=== PATIENT | male | born 1940 | race Caucasian/White ===

== ENCOUNTER 2017-07-22 12:06 | Inpatient (IN) | payer OTHER ==
--- NOTE | 2017-07-22 12:38 | CPEKG ---
Heart Rate: 57 RR Interval: 1053 P-R Interval: 240 QRSD Interval: 140 QT Interval: 448 QTC Interval: 437 P [place]: 27 QRS [place]: 53 T Wave [place]: 10 EKG Severity - ABNORMAL ECG - EKG Impression: SINUS RHYTHM EKG Impression: FIRST DEGREE AV BLOCK EKG Impression: RIGHT BUNDLE BRANCH BLOCK Electronically Signed By: Jarod Hernandez 22-Jul-2017 18:39:43
[2017-07-22 12:51] LABS: PLATELET COUNT 116 10^3/uL (150-400)
[2017-07-22 13:00] LABS: INR 2.35 (0.83-1.16); PROTIME(PATIENT) 25.7 SEC (12.0-15.0)
--- NOTE | 2017-07-22 14:32 | EDPHY ---
H & P Stated Complaint: sob post cleaning broken water heater in basement monday Time Seen by Provider: 07/22/17 12:29 - Personal History Current Tetanus/Diphtheria Vaccine: Yes Tetanus Vaccine Date: 2011 - Medical/Surgical History Hx Asthma: No Hx Chronic Respiratory Disease: No Hx Diabetes: No Hx Cardiac Disease: No Hx Renal Disease: No Hx Cirrhosis: No Hx Alcoholism: No Hx HIV/AIDS: No Hx Splenectomy or Spleen Trauma: No Other PMH: HTN, cataract/PE - Social History Smoking Status: Never smoked Constitutional: Initial Vital Signs Temperature (C) 36.3 C 07/22/17 12:11 Heart Rate 63 07/22/17 12:11 Respiratory Rate 22 H 07/22/17 12:11 Blood Pressure 151/75 H 07/22/17 12:11 O2 Sat (%) 100 07/22/17 12:11 O2 Delivery Mode Room Air Allergies/Adverse Reactions: morphine [Morphine] Allergy (Intermediate, Verified 07/22/17 12:10) Loss of consciousness nitroglycerin [Nitroglycerin] Allergy (Intermediate, Verified 07/22/17 12:10) Loss of consciousness Penicillins Allergy (Unknown, Verified 07/22/17 12:10) Home Medications: Medication Instructions Recorded Atenolol [Tenormin 25 mg (*)] 25 mg PO DAILY 07/22/17 Herbals/Supplements -Info Only 1 ea PO DAILY 07/22/17 SIMVASTATIN 10 mg PO HS 07/22/17 Sildenafil Citrate [Viagra 50 MG 100 mg PO DAILY PRN 07/22/17 (*)] Tamsulosin HCl [Tamsulosin HCl] 0.4 mg PO DAILY 07/22/17 Warfarin Sodium [Coumadin 2MG (*)] 6 mg PO SUMOWETHSA@1600 07/22/17 Warfarin Sodium [Coumadin 2MG (*)] 8 mg PO TUFR@1600 07/22/17 Medical Decision Making - Diagnostics Imaging Results: Imaging Impressions Chest X-Ray 07/22/17 12:38 Impression: Normal chest. Imaging: Discussed imaging studies w/ crystal machining coordinator Radiologist, I viewed and interpreted images myself ED Course/Re-evaluation: CHIEF COMPLAINT: Multiple near syncopal episodes HISTORY OF PRESENT ILLNESS: 77-year-old gentleman who over the last few days has had multiple near syncopal episodes. He denies any chest pain chest pressure. He denies any fevers or chills. Denies any urinary symptoms. He states that at times he will be completely fine like last night when he went out to dinner with his daughter and son-in-law. He also then states that later in the evening he got up to go into the kitchen from sitting in his house and he felt exceedingly lightheaded and dizzy near syncopal and had to sit down immediately. He denies any palpitations. This patient has a factor 5 Leiden disorder and he is anticoagulated on Coumadin. He has had 2 pulmonary emboli in the past but no symptoms today remind him of his pulmonary emboli. REVIEW OF SYSTEMS: A 10 point review of systems was performed and is negative with the exception of the elements mentioned in the history of present illness. PHYSICAL EXAM: HR, BP, O2 Sat, RR. Temp noted General Appearance: Alert, well hydrated, appropriate, and non-toxic appearing. Head: Atraumatic without scalp tenderness or obvious injury Eyes: Pupils equal, round, reactive to light and accommodation, EOMI, no trauma , no injection. Nose: Atraumatic, no rhinorrhea, clear. Throat: There is no erythema or exudates, no lesions, normal tonsils, mucus membranes moist. Neck: Supple, non-tender, no lymphadenopathy. Respiratory: No retractions, no distress, no wheezes, and no accessory muscle use. Lungs are clear to auscultation bilaterally. Cardiovascular: Regular rate and rhythm, no murmurs, rubs, or gallops. Good capillary refill all extremities. Gastrointestinal: Abdomen is soft, non-tender, non-distended, no masses, no rebound, no guarding, no peritoneal signs. Musculoskeletal: Normal active ROM of all extremities, atraumatic. Neurological: Alert, appropriate, and interactive. The patient has non-focal cranial nerves, motor, sensory, and cerebellar exam. Skin: No rashes, good turgor, no nodules on palpation. PAST MEDICAL HISTORY: Factor V Leiden deficiency, Hypertension, PE PAST SURGICAL HISTORY: Noncontributory SOCIAL HISTORY: , retired, does not abuse tobacco drugs or alcohol, traveling to [facility] tomorrow DIAGNOSTICS/PROCEDURES/CRITICAL CARE TIME: The 12 lead EKG was interpreted by myself. Sinus rhythm rate 57, first degree AV block, RBBB. See hard copy and/or "tracemaster" electronic copy for interpretation. The 2nd EKG shows a complete heart block at 2:21 a.m. With a in effective ventricular rate of 35. See below Chest x-ray: nothing acute The 12 lead EKG was interpreted by myself. 2:1 heart block, rate 36. See hard copy and/or "tracemaster" electronic copy for interpretation. Critical care time spent by me, Dr. Hernandez, exclusively with this patient was 35 minutes, exclusive of PA time and exclusive of procedures. The organ system at risk was cardiovascular. Time spent in assessment, serial reassessments of patient, discussion with patient and family, consideration of interventions, review of EKGs, labs, and imaging, and consultation with cardiology. DIFFERENTIAL DIAGNOSIS: The differential diagnosis for the patient's syncope included but was not limited to vasovagal syncope, arrhythmia, dehydration, cardiogenic causes, neurogenic causes, and blood loss. MEDICAL DECISION MAKING: This is an anticoagulated 77 y/o male with Factor V Leiden deficiency who presents with a few days of recurrent near-syncopal events. Symptoms could represent pulmonary embolism vs. arrhythmia. Plan for standard cardiac and PE work up including IV, labs, EKG, chest x-ray. Negative D-dimer and troponin. Chest x-ray negative. EKG shows sinus rhythm with 1st degree AV block and RBBB. 1420: RN sat patient up for road test and his HR dropped to the mid-30s. He was symptomatic at this time. His rate persisted in to mid-30 range for 5-10 minutes. This is likely customer support representative of sick sinus syndrome and correlates with his symptoms over the last few days. Repeat EKG ordered. Reevaluated patient and discussed findings. PCP: Dr. Lindsay. No recent bottle tester. Cardiology paged. 1430: Repeat EKG shows 2:1 heart block, rate 36. 1435: Spoke with hospitalist service. Dr. Sandoval accepts admission. 1438: Consulted with Dr. Park, bottle tester. He requests an echocardiogram. He will consult during admission. NPO status after midnight with plan for pacer placement tomorrow. - Data Points Laboratory Results: Laboratory Results 07/22/17 12:45 07/22/17 12:45 07/22/17 07/22/17 07/22/17 12:45 12:45 12:45 WBC 2.88 10^3/uL L 10^3/uL (3.80-9.50) RBC 5.15 10^6/uL 10^6/uL (4.40-6.38) Hgb 16.5 g/dL g/dL (13.7-17.5) Hct 47.9 % % (40.0-51.0) MCV 93.0 fL fL (81.5-99.8) MCH 32.0 pg pg (27.9-34.1) MCHC 34.4 g/dL g/dL (32.4-36.7) RDW 12.7 % % (11.5-15.2) Plt Count 116 10^3/uL L 10^3/uL (150-400) MPV 10.2 fL fL (8.7-11.7) Neut % (Auto) 47.6 % % (39.3-74.2) Lymph % (Auto) 36.1 % % (15.0-45.0) [place] % (Auto) 13.2 % H % (4.5-13.0) Eos % (Auto) 2.1 % % (0.6-7.6) Baso % (Auto) 0.7 % % (0.3-1.7) Nucleat RBC Rel Count 0.0 % % (0.0-0.2) Absolute Neuts (auto) 1.37 10^3/uL L 10^3/uL (1.70-6.50) Absolute Lymphs (auto) 1.04 10^3/uL 10^3/uL (1.00-3.00) Absolute Monos (auto) 0.38 10^3/uL 10^3/uL (0.30-0.80) Absolute Eos (auto) 0.06 10^3/uL 10^3/uL (0.03-0.40) Absolute Basos (auto) 0.02 10^3/uL 10^3/uL (0.02-0.10) Absolute Nucleated RBC 0.00 10^3/uL 10^3/uL (0-0.01) Immature Gran % 0.3 % % (0.0-1.1) Immature Gran # 0.01 10^3/uL 10^3/uL (0.00-0.10) PT 25.7 SEC H SEC (12.0-15.0) INR 2.35 H (0.83-1.16) APTT 34.8 SEC SEC (23.0-38.0) D-Dimer 0.30 ug/mLFEU ug/mLFEU (0.00-0.50) Sodium 144 mEq/L mEq/L (135-145) Potassium 4.5 mEq/L mEq/L (3.5-5.2) Chloride 107 mEq/L mEq/L (97-110) Carbon Dioxide 23 mEq/l mEq/l (22-31) Anion Gap 14 mEq/L mEq/L (8-16) BUN 20 mg/dL mg/dL (7-23) Creatinine 1.1 mg/dL mg/dL (0.7-1.3) Estimated GFR > 60 Glucose 102 mg/dL H mg/dL (70-100) Calcium 9.7 mg/dL mg/dL (8.5-10.4) Magnesium 2.0 mg/dL mg/dL (1.6-2.3) Troponin I < 0.012 ng/mL ng/mL (0.000-0.034) NT-Pro-B Natriuret Pep 70 pg/mL pg/mL (0-450) Departure - Departure Disposition: [facility] Inpatient Acute Clinical Impression: Sick sinus syndrome, Symptomatic bradycardia, Complete heart block Condition: Fair
--- NOTE | 2017-07-22 14:34 | CPEKG ---
Heart Rate: 36 RR Interval: 1667 P-R Interval: 232 QRSD Interval: 142 QT Interval: 504 QTC Interval: 390 P [place]: 36 QRS [place]: 70 T Wave [place]: 85 EKG Severity - ABNORMAL ECG - EKG Impression: PREDOMINANT 2:1 AV BLOCK EKG Impression: RIGHT BUNDLE BRANCH BLOCK Electronically Signed By: Jarod Hernandez 22-Jul-2017 18:39:43
--- NOTE | 2017-07-22 14:57 | PDGENHP ---
History and Physical History and Physical: Chief complaint: near syncope History of present illness: Pt started feeling very fatigued/ill 3 days ago. This AM, he had an episode of near syncope after he picked up the newspaper in his front yard. He had lightheadedness and a fear of passing out. He went back inside and sat down and the symptoms resolved. It occurred again as he was starting to fix breakfast, standing. He had to sit down again to improve the symptoms. He called his friend, who brought him to the ED, where he was found to have 2:1 AV conduction on EKG and telemetry while he was walking. Symptoms are worse with standing, walking, sitting up. Symptoms are better when he rests or lies down. Past medical history: Factor V Leiden thrombophilia, Hypertension, PE, BPH, hyperlipidemia. Past surgical history: Cholecystectomy, inguinal hernia repair, vasectomy, laser eye surgery. Medications: Atenolol 25 mg p.o. Daily, finasteride 5 mg p.o. Daily, simvastatin 10 mg p.o. Daily, tamsulosin 0.4 mg p.o. Daily, Centrum Silver 1 tablet p.o. Daily. Allergies: Morphine, nitroglycerin, penicillin. 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. . No tobacco or alcohol or drug use. Sedentary. Denies recent travel in the last 6mos. Denies tick/Lyme exposure. Family history: DVT. Review of systems: 10 point review of systems was conducted and is negative except per HPI Physical exam: Vitals: Reviewed. Noted HR 38 on telemetry. Gen: General: The patient is an elderly male who is alert and in no acute distress. HEENT: normocephalic, extraocular movements intact, conjunctivae clear, no lesions on face. Nares and oral mucosa pink and moist. Neck: trachea midline, no visible masses, no external lesions. CV: +S1/S2, slow heart rate, regular rhythm, no MRG. Resp: unlabored, CTAB no RRW. Abd: soft and nondistended. Musculoskeletal: Normal muscle tone and bulk. Neuro: cranial nerves II XII grossly intact. Intact gross motor and sensory function. Psych: appropriate mood/affect. Skin: no pallor. Heme/lymph: No peripheral edema. Labs: WBC 2.8, platelets 116, hemoglobin 16.5. INR 2.35. D-dimer 0.3. Sodium 144 potassium 4.5 chloride 107 CO2 23 BUN 20 creatinine 1.1 glucose 102 calcium 9.7 magnesium 2.0 troponin I less than 0.012 proBNP 70. Chest x-ray: No acute cardiopulmonary process. EKG at 12:36: Sinus rhythm with heart rate 57, 1st deg AVB, RBBB. EKG at 13:32: SR, HR 36, 3rd deg AVB w/ 2:1 conduction. Impression and plan: AVB w/ 2:1 conduction HTN Hyperlipidemia Factor V Leiden thrombophilia Hx PE BPH -Spoke w/ ED physician, who consulted Cardiology. Dr. Park customer relations assistant - recs appreciated. -Discussed case w/ Dr. Park - who recommends to hold BB and if still experiencing heart block plan for PPM placement on Monday. -Since pt is hemodynamically stable, he is being admitted to PCU w/ cardiac monitoring. -Stat TTE has been ordered - per d/w Dr. Park, it is normal. Report pending. -Check TSH to r/o hypothyroidism as a metabolic cause. -Hold beta akira. -Check UA to r/o UTI in case of PPM placement. -Holding warfarin in anticipation of procedure. If INR becomes subtherapeutic (< 2), start heparin drip for AC. -Check labs in AM. -VTE ppx - has been on therapeutic on warfarin, start heparin drip after become subtherapeutic. -Code status - Full code. -Admission status - PCU, inpatient admission for >2 midnight stay.
[2017-07-22] MEDS ORDERED: ONDANSETRON DISINTEGRATING 4 MG TAB PO PRN (15:56)
[2017-07-22] MEDS ORDERED: ACETAMINOPHEN 325 MG TAB PO PRN (15:56)
--- NOTE | 2017-07-22 16:25 | PDMN ---
Medical Necessity Medical necessity: C/M review: Patient meets INPT criteria under [facility] Cardiology GRG (Atrioventricular block, second degree type 2 versus Atrioventricular block, third degree): Acute and persistent symptomatic second degree type AV block versus 3rd degree AV block, tatigue, bradycardia to 30's, requiring planned Cardiology consult, echocardiogram, hold Warfarin in anticipation of likely 07/23/2017 permanent pacemaker placement, NPO after MN, ongoing hold beta akira, cardiac monitoring, pulse oximetry, comorbid hypertension, Factor V Leiden thrombophilia, hyperlipidemia, BPH, history of PE. anticipates > 2 MN LOS for ongoing med nec for eval and TX of above. Patient is Medicare Advantage which follows guidelines CMS puts forth.
--- NOTE | 2017-07-22 16:25 | SOAPPROG ---
HENOK Progress Note Assessment/Plan: Assessment: Cardiology consultation performed and dictated. See full consult note for full details. 77 y/o man with HTN, factor V deficiency with PEs in and 2011 with three days of near syncope and BRADEN at one block and found to have 2:1 AV block with heart rate of 35bpm. PLAN: 1)stop Atenolol and see if bradyarrhythmias improved. I doubt the atenolol caused all of this and will probably need PPM Monday. 2)transcutaneous pacer pads on 3)hold coumadin in anticipation for PPM monday. Start IV heparin get once INR < 2.0 4)one more troponin in AM (07/23) 5)bedrest with minimal exercise 6)continuous telemetry. Thanks. Will follow with you. 07/22/17 16:22 Objective: Vital Signs Temp Pulse Resp BP Pulse Ox 36.6 C 40 L 18 134/70 H 97 07/22/17 16:03 07/22/17 16:03 07/22/17 16:03 07/22/17 16:03 07/22/17 16:03 PT 25.7 SEC (12.0-15.0) H 07/22/17 12:45 INR 2.35 (0.83-1.16) H 07/22/17 12:45 ICD10 Worksheet Patient Problems: Problems Problem Status Onset Complete heart block Acute Sick sinus syndrome Acute Symptomatic bradycardia Acute
[2017-07-22] MEDS: PRAVASTATIN SODIUM 20 MG TAB PO SCH (20:15)
--- NOTE | 2017-07-22 20:59 | GCON ---
[f rep st] CONSULTATION CARDIOLOGY CONSULT DATE OF CONSULTATION: 07/22/2017 REASON FOR CONSULTATION: Three days of near syncope and dyspnea on exertion with newly found 2-to-1 AV block and heart rate of 35 beats per minute. HISTORY OF PRESENT ILLNESS: I was asked by Dr. Sandoval to consult for the above reasons. The patient is a 77-year-old gentleman with no previous cardiac problems. He has had hypertension for 11 years o n atenolol 25 mg daily. He has also Factor 5 Leiden deficient and has had 2 PEs, both in 1998 and 24 05, on chronic Coumadin. He had a treadmill Cardiolite stress test in 2009, which was normal. Three days ago he started having near syncope and dyspnea on exertion at 20 feet. Today, he came into the emergency room for persistent symptoms, and was found initially to be in sinus Cortez at 55 beats per minute with a first degree AV block and right bundle branch block. During the ER evaluation, he ashvin t into a 2-1 AV block with a heart rate of 35 beats per minute. Lying in bed he is asymptomatic, but when he walks around he has near syncope and shortness of breath. He denies chest pain, TIA symptom s or recent bleeding. He has had no fevers or chills in the last week. PAST MEDICAL HISTORY: Pulmonary embolus in 1998 and again in 2011, hypertension, hyperlipidemia, pre vious Soco-Noel GI bleed remotely, ED, and factor 5 Leiden deficiency. PAST SURGICAL HISTORY: Cholecystectomy. MEDICATIONS: Atenolol 25 mg per day, Coumadin, and simvastatin. ALLERGIES: Morphine, nitroglycerin, and penicillin. SOCIAL HISTORY: The patient denies tobacco or alcohol use. FAMILY HISTORY: Unremarkable for premature coronary artery disease. REVIEW OF SYSTEMS: The patient reports no GI bleed symptoms such as hematemesis, melena, or bright r ed blood per rectum. He has no arthralgias or painful effusions. Rest of 10-point review of systems is negative. PHYSICAL EXAM: VITAL SIGNS: Afebrile, pulse 36 and regular, blood pressure 135/86, respirations 20, weight 90.7 kg. GENERAL: A normal-appearing gentleman in no acute distress without chest pain or u sing accessory respiratory muscles. EYES: Pupils equal, reactive to light. ENT: Oral mucosa with no cyanosis. NECK: Jugular venous pressure to 7 cm. Carotid pulses 2+ bilaterally with no obvious bruits. LUNGS: Clear to auscultation bilaterally without rales, rhonchi, or wheezing. HEART: Bong ycardic. Normal PMI. Regular rhythm with no obvious murmurs or S3. ABDOMEN: Soft and nontender. No hepatosplenomegaly. No ascites. No tenderness or bruit heard over his abdominal aorta. EXTREMIT IES: 2+ peripheral pulses, including femoral and pedal pulses. No edema noted. MUSCULOSKELETAL: No scoliosis. NEURO: Normal affect and mood. SKIN: No bleeding or cyanosis. NECK: No nuchal rigid ity. LABORATORY DATA: EKG 2-to-1 AV block with a heart rate of 36 beats per minute and a right bundle bra nch block. White count 2.9, hematocrit 48, platelets 116,000, MCV 93, INR 2.35. Sodium 144, potassium 4.5, chlo ride 107, bicarb 23, BUN 20, creatinine 1.1, glucose 102. Troponin negative. NT proBNP level 70. IMPRESSION: A 77-year-old gentleman with 3 days of near syncope and dyspnea on exertion secondary to cortez arrhythmias with 2-to-1 atrioventricular block, and an escape heart rate of 36 beats per minut e. 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 There is a remote chance that this is all related to his atenolol. Delphine hinds is not suffering from a myocardial infarction or heart failure clinically. PLAN: 1. Would admit to telemetry, and stop his atenolol and Coumadin. 2. Would get a stat echo to make sure his LV function is normal. 3. Would follow him on telemetry, but if he is still having significant Cortez arrhythmias in 24 hour s off atenolol, I think he needs a pacemaker, probably on Monday. 4. He is at high risk for recurrent PEs or clotting with subtherapeutic Coumadin. Once his INR is l ess than 2.0, would start him on an unfractionated heparin drip that we can stop the tootie pacemaker i nsertion. 5. Would check a TSH and urinalysis to make sure we do not have severe hypothyroidism or an occult U TI going on. 6. If his blood pressure starts to go up off atenolol, would use lisinopril 10-20 mg as his blood pr essure medicine. Thank you for allowing me to participate in the care of this patient. I will follow along closely wi th you during his hospitalization. /[id number]/MODL
[2017-07-22] MEDS ORDERED: NON-FORMULARY NEW DRUG (Simvastatin [Simvastatin] 10 MG) PO SCH (21:00)
[2017-07-23 05:14] LABS: PLATELET COUNT 112 10^3/uL (150-400)
[2017-07-23 05:22] LABS: INR 2.49 (0.83-1.16); PROTIME(PATIENT) 26.9 SEC (12.0-15.0)
--- NOTE | 2017-07-23 08:40 | CPEKG ---
Heart Rate: 62 RR Interval: 968 P-R Interval: 244 QRSD Interval: 142 QT Interval: 476 QTC Interval: 484 P [place]: 41 QRS [place]: 69 T Wave [place]: 16 EKG Severity - ABNORMAL ECG - EKG Impression: SINUS RHYTHM EKG Impression: FIRST DEGREE AV BLOCK EKG Impression: RIGHT BUNDLE BRANCH BLOCK Electronically Signed By: Walt Garcia 23-Jul-2017 09:50:23
--- NOTE | 2017-07-23 08:49 | SOAPPROG ---
SOAP Progress Note Assessment/Plan: Assessment: 77 y/o man with HTN, factor V deficiency with PEs in and 2011 with three days of near syncope and BRADEN at one block and found to have 2:1 AV block with heart rate of 35bpm. Off Atenolol now in NSR at 60bpm with long first degree AV block and RBBB. No symptoms last 12hrs but has been mostly confined to bed. ? urine contaminate vs occult, uncomplicated UTI. PLAN: 1)no change in current meds. Continue to hold Atenolol and coumadin 2)okay to ambulate in hallways. 3)agree with checking INR this afternoon. If still > 2.4, would give Vitamin K 1mg IV slow push. 4)will discuss with hospitalist about treating for UTI empirically. 5)NPO after midnight for possible permanent pacemaker tomorrow. Will have EP- Gabriela consult in AM 6)no need for new BP med yet. Start Lisinopril 10mg PO daily if SBP > 160mmHg. 07/23/17 08:45 Subjective: no complaints this AM. Denies furthur dizziness, near syncope or BRADEN. Denies fevers, chills or dysuria. Objective: Vital Signs Temp Pulse Resp BP Pulse Ox 36.7 C 39 L 15 122/62 H 96 07/23/17 07:36 07/23/17 07:36 07/23/17 07:36 07/23/17 07:36 07/23/17 07:36 Laboratory Results 07/23/17 04:44 07/23/17 04:44 07/22/17 07/23/17 07/24/17 05:59 05:59 05:59 Intake Total 660 Output Total 425 Balance 235 PT 26.9 SEC (12.0-15.0) H 07/23/17 04:44 INR 2.49 (0.83-1.16) H 07/23/17 04:44 Physical Exam - Physical Exam General Appearance: alert EENT: normal ENT inspection Neck: non-tender Respiratory: lungs clear Cardiac/Chest: regular rate, rhythm, systolic murmur (1/6 CONTRERAS heard), No gallop , No JVD Peripheral Pulses: 2+: carotid (R), carotid (L), femoral (R), femoral (L), dorsalis-pedis (R), dorsalis-pedis (L) Abdomen: non-tender, No distended, No guarding Skin: warm/dry Extremities: No pedal edema Neuro/Psych: alert, oriented x 3 ICD10 Worksheet Patient Problems: Problems Problem Status Onset Complete heart block Acute Sick sinus syndrome Acute Symptomatic bradycardia Acute
--- NOTE | 2017-07-23 09:26 | ASMTLACE ---
LACE Length of stay for Answers: 2 days current admission Acuity / Level of Answers: Yes Care: Did the patient have an inpatient admission? Comorbidities - select Answers: Other Notes: pre Syncope all that apply # of Emergency department Answers: 1-2 visits in the last 6 months Score: 7 Date Signed: 07/23/2017 09:26 AM Electronically Signed By:Mabel Samuel LCSW
--- NOTE | 2017-07-23 09:30 | ECHO ---
[email or web address] [address] Main: [phone] Fax: Transthoracic Echocardiogram Name: STEVE ELIZABETH MR#: [id number] Study Date: 07/22/2017 Study Time: 03:18 PM Date of : 1940 Age: 77 year(s) Height: 188 cm (74 in.) Weight: 90.72 kg (200 lb.) BSA: 2.17 m2 Gender: Male Examination: Echo Indication: Heart Block Image Quality: Adequate Contrast: Requested by: Jarod Hernandez BP: / Heart Rate: Rhythm: Indication: Heart Block Procedure Staff Cad Programmer: Ludivina Falk [facility] Reading Physician: Faisal Park Requesting Provider: Conclusions: 1)Normal LV size and systolic function with a LVEF of 65% and normal wall motions. 2)Mild diastolic dysfunction noted. 3)Upper normal RV size with normal RVEF. 4)Mild left atrial enlargement noted. 5)Aortic valve sclerosis without or AI noted. 6)Mild to moderate MR without MV prolapse. 7)Mild to moderate TR noted with upper limits of normal PA pressures. Measurements: Chambers Valvular Assessment AV/MV Valvular Assessment TV/PV Normal Normal Normal Name Value Range Name Value Range Name Value Range Ao Nessa (MM): 3.0 cm (2.2 cm-3.7 AV Vmax: 1.28 m/s (1 m/s-1.7 TR Vmax: 2.76 mm/s ( - ) cm) m/s) TR PGmax: 30 mmHg ( - ) IVSd (2D): 1.0 cm (0.6 cm-1.1 AV maxP mmHg ( - ) syst. PAP: 40 mmHg ( - ) cm) LVOT Vmax: 1.21 m/s (0.7 m/s-1.1 PV Vmax: 0.90 m/s (0.6 m/s-0.9 LVDd (2D): 4.1 cm (4.2 cm-5.9 m/s) m/s) cm) SUSAN (Vmax): 3.0 cm2 ( - ) PV PGmax: 3 mmHg ( - ) LVDs (2D): 2.5 cm (2.1 cm-4 MV E Vmax: 0.76 m/s ( - ) cm) MV A Vmax: 1.20 m/s ( - ) LVPWd (2D): 1.0 cm (0.6 cm-1 MV E/A: 0.63 ( - ) cm) LVOTd 2.0 cm 2.0 cm mm LVEF (BP): 65 % (>=55 %) RVDd(2D): 3.3 cm (1.9 cm-3.8 cmmm) Continued Measurements: Chambers Valvular Assessment AV/MV Valvular Assessment TV/PV Patient: STEVE ELIZABETH Study Date: 07/22/2017 Page 1 of 2 03:18 PM Name Value Name Value Name Value LADs Lon.6 cm MV E' Septal: 0.09 m/s CVP (est.): 10 mmHg LA Area: 14.3 cm2 MV E/E' Septal: 8.90 LA Volume: 38 ml MV E/E' Lateral: 7.80 LA Volume Index: 17.5 ml/m2 RA Area: 14.9 cm2 Additional Vessels Name Value Ao Ascendin.4 cm Findings: Left Ventricle: Normal size left ventricle. Borderline concentric LV hypertrophy. Normal global systolic LV function. EF is 65 %. No regional wall motion abnormality. Grade 1 diastolic dysfunction (abnormal relaxation). Right Ventricle: Upper normal size right ventricle. Normal RV function. Left Atrium: The left atrium is mildly dilated. Right Atrium: The right atrium is normal in size. Mitral Valve: Mild mitral annular calcification. No mitral stenosis is present. Mild to moderate mitral regurgitation. Aortic Valve: The aortic valve is tri-leaflet and functions normally. Mild aortic cusp calcification is noted. There is no aortic valve regurgitation. No aortic valve stenosis is present. Tricuspid Valve: The tricuspid valve is normal in appearance and function. Mild to moderate tricuspid valve regurgitation. Right ventricular systolic pressure measures 40mmHg. Pulmonic Valve: The pulmonic valve is normal in appearance and function. There is no pulmonic regurgitation seen. Aorta: The aorta is normal. Normal size aortic root measuring 3.0 cm. Normal size ascending aorta measuring 3.4 cm. IVC: The IVC is dilated. Pericardium: No pericardial effusion. (No Signature Object) Patient: STEVE ELIZABETH Study Date: 07/22/2017 Page 2 of 2 03:18 PM [id number]
--- NOTE | 2017-07-23 09:30 | ASMTCMCOM ---
CM Note CM Note Notes: 77 yr old male admitted for near syncope. Patient has a hx ofFactor V Leiden Synd, HTN, PE, BPH, HLD. Cardiac work-up -patient may need permanent pacer. Therapies to eval for possible discharge needs. CM to follow. Date Signed: 07/23/2017 09:29 AM Electronically Signed By:Mabel Samuel LCSW
[2017-07-23] MEDS: FINASTERIDE 5 MG TAB PO SCH (10:02)
--- NOTE | 2017-07-23 13:06 | HOSPPROG ---
Hospitalist Progress Note Assessment/Plan: Assessment: 77-year-old male presents with acute near syncope secondary to 2:1 heart block Plan: 1. Heart block. Acute, new problem this provider, further workup indicated. 2: 1, escape rate of 36, right bundle branch block on EKG, personally interpreted, unclear whether this has been caused or potentiated by atenolol usage -no evidence of congestive heart failure on chest x-ray -discussed with Dr. Faisal Park, he recommends continuing to hold the atenolol, continue monitor on telemetry, repeat INR this afternoon administer vitamin K if greater than 2.4, in preparation for EP eval and possible permanent pacemaker tomorrow -NPO after midnight 2. Factor 5 Leiden and history of pulmonary embolism. Patient on chronic systemic anticoagulation, currently therapeutic on Coumadin, holding his Coumadin in preparation of likely pacemaker tomorrow -as noted above, repeat INR this afternoon administer vitamin K 1 mg if greater than 2.4, otherwise repeat INR in a.m. -once patient's INR is less than 2, placed on heparin drips this can be discontinued 6 hr prior to pacemaker procedure but continue to cover the patient in the interim 3. Hypertension. Chronic, patient was originally receiving atenolol, currently being held, he initiate lisinopril if systolic blood pressures greater than 160 , currently 110-140 4. Asymptomatic bacteriuria. Patient currently has no urinary symptoms, his urinalysis has a minimal amount of white blood cells and 2+ leukocyte esterase, would not recommend treating this as a urinary tract infection unless the patient develops urinary symptoms 5. BPH. Chronic, currently holding tamsulosin, will reinitiate after pacemaker Diet. Regular, NPO after midnight Prophylaxis. High risk patient, currently systemically anticoagulated Code. Full Disposition. Anticipated discharge is 07/24, verses , depending on hospital course outlined above. Subjective: Patient without any chest pain, very minimal lightheadedness upon standing, no urinary symptoms Objective: Vital Signs Temp Pulse Resp BP Pulse Ox 36.5 C 65 13 146/75 H 100 07/23/17 11:14 07/23/17 11:14 07/23/17 11:14 07/23/17 11:14 07/23/17 11:14 Laboratory Results 07/23/17 04:44 07/23/17 04:44 02/07/23/17 07/24/17 05:59 05:59 05:59 Intake Total 660 Output Total 425 Balance 235 PT 26.9 SEC (12.0-15.0) H 07/23/17 04:44 INR 2.49 (0.83-1.16) H 07/23/17 04:44 - Physical Exam Constitutional: no apparent distress, appears nourished, not in pain, No uncomfortable Cardiovascular: systolic murmur (2/6 at the sternum and apex), bradycardia, No irregularly irregular, No tachycardia, No edema Respiratory: no respiratory distress, no rales or rhonchi, clear to auscultation Gastrointestinal: normoactive bowel sounds, soft, non-tender abdomen, no palpable masses Neurologic: AAOx3, sensation intact bilaterally, No weakness Psychiatric: interacting appropriately, not anxious, not encephalopathic, thought process linear ICD10 Worksheet Patient Problems: Problems Problem Status Onset Sick sinus syndrome Acute Symptomatic bradycardia Acute Complete heart block Acute
[2017-07-23 16:21] LABS: INR 2.41 (0.83-1.16); PROTIME(PATIENT) 26.2 SEC (12.0-15.0)
[2017-07-23] MEDS: PRAVASTATIN SODIUM 20 MG TAB PO SCH (20:17)
[2017-07-23] MEDS ORDERED: PHYTONADIONE 2.5 MG/2.5 ML ORAL UDL PO ONE (23:24)
[2017-07-23] MEDS ORDERED: 1/2 NS 1,000 ML IV SCH (23:45)
[2017-07-24 04:13] LABS: INR 2.26 (0.83-1.16)
--- NOTE | 2017-07-24 08:49 | CPEKG ---
Heart Rate: 34 RR Interval: 1765 P-R Interval: 224 QRSD Interval: 146 QT Interval: 528 QTC Interval: 397 P [place]: 39 QRS [place]: 61 T Wave [place]: 36 EKG Severity - ABNORMAL ECG - EKG Impression: Sinus rhythm, 2:1 AV BLOCK EKG Impression: RIGHT BUNDLE BRANCH BLOCK Electronically Signed By: Cameron Ochoa 24-Jul-2017 12:09:24
--- NOTE | 2017-07-24 09:57 | PDCARPN ---
Cardiology Progress Note Chief Complaint: near syncope/ Mobitz Type II Assessment/Plan: Assessment: 77M PMH htn, FVL p/w near syncope and BRADEN starting 3 days [employer]BI[employer] ENG[employer]. H/o 2 PEs with one in 1998 and one in 2011 and h/o htn. Has been on chronic Warfarin since then. Found to have Mobitz Type II HB on monitoring despite being off Atenolol x 48 hours. #. 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 htn: BP appears acceptable despite being off of Atenolol defer adding another antihypertensive at this point #. FVL mutation: Warfarin on hold defer LMWH Plan: - PPM in AM 07/24/17 09:51 Subjective: Feels well. No near syncope currently. Reviewed/Discussed With: hospitalist (Dr. Flores) Objective: Vital Signs (8 Hrs) Temp Pulse Resp BP Pulse Ox 07/24/17 08:40 97.7 F 07/24/17 08:00 34 L 16 130/73 H 95 07/24/17 04:00 98.7 F 37 L 16 129/63 H 96 Intake/Output (24 Hrs) 07/23/17 07/24/17 07/25/17 05:59 05:59 05:59 Intake Total 660 400 Output Total 425 200 300 Balance 235 200 -300 Intake: Oral (ml) 660 400 Output: Urine (ml) 425 200 300 Bedside Commode 275 Toilet 300 Urinal 150 200 Other: Weight 90.718 kg Intake Quantity Yes npo Sufficient Number of Voids Bedside Commode 1 Toilet 1 Urinal 1 1 Number of Stools Toilet 1 Result Diagrams: 07/23/17 04:44 07/23/17 04:44 Cardiac Labs: Cardiac Lab Results (72 Hrs) 07/23/17 04:44 Troponin I < 0.012 EKG: SR with 2nd degree AVB Type II Telemetry: reviewed Echocardiogram: EF 65, mild-mod MR/TR - Physical Exam Constitutional: healthy appearing, no apparent distress Eyes: PERRL Ears, Nose, Mouth, Throat: moist mucous membranes Cardiovascular: regular rate and rhythm Gastrointestinal: normoactive bowel sounds, no tenderness Skin: no rashes, no abrasions Neurologic: AAOx3 Psychiatric: cooperative, interactive ICD10 Worksheet Patient Problems: Problems Problem Status Onset Complete heart block Acute Sick sinus syndrome Acute Symptomatic bradycardia Acute
[2017-07-24] MEDS ORDERED: VANCOMYCIN 1.25 GM in NS 250 ML IV ONE (10:00)
[2017-07-24] MEDS: FINASTERIDE 5 MG TAB PO SCH (10:40)
--- NOTE | 2017-07-24 18:14 | HOSPPROG ---
Hospitalist Progress Note Assessment/Plan: Assessment: 77-year-old male presents with acute near syncope secondary to 2:1 heart block Plan: 1. Heart block. Acute, 2:1, escape rate of 36, right bundle branch block on EKG , persists on tele (personally interpreted) -no evidence of congestive heart failure on chest x-ray -discussed with Dr. Joan Villafana, she reports patient will receive PPM tomorrow, d /w Dr. Ochoa, he does not rec Vit K at this time -NPO after midnight 2. Factor 5 Leiden and history of pulmonary embolism. Patient on chronic systemic anticoagulation, currently therapeutic on Coumadin, holding his Coumadin in preparation of likely pacemaker tomorrow -recheck INR tomorrow AM -plan to start hep gtt after PPM to bridge x 24hrs, then can DC home on lovenox bridge + coumadin 3. Hypertension. Chronic, patient was originally receiving atenolol, currently being held, he initiate lisinopril if systolic blood pressures greater than 160 , currently 110-140 4. Asymptomatic bacteriuria. Patient currently has no urinary symptoms, his urinalysis has a minimal amount of white blood cells and 2+ leukocyte esterase, would not recommend treating this as a urinary tract infection unless the patient develops urinary symptoms -will check CBC in AM, encouraged patient to report any urinary sx 5. BPH. Chronic, currently holding tamsulosin, will reinitiate after pacemaker , patient w/ mild hesitency which is to be expected Diet. Regular, NPO after midnight Prophylaxis. High risk patient, currently systemically anticoagulated Code. Full Disposition. Anticipated discharge is 07/26, depending on hospital course outlined above. Subjective: hesitency, no dysuria or suprapubic pain Objective: Vital Signs Temp Pulse Resp BP Pulse Ox 36.5 C 39 L 16 136/79 H 93 07/24/17 16:00 07/24/17 16:00 07/24/17 16:00 07/24/17 16:00 07/24/17 16:00 Laboratory Results 07/23/17 04:44 07/23/17 04:44 07/23/17 07/24/17 07/25/17 05:59 05:59 05:59 Intake Total 139 924 7180 Output Total 460 787 7863 Balance 235 200 375 PT 25.0 SEC (12.0-15.0) H 07/24/17 03:44 INR 2.26 (0.83-1.16) H 07/24/17 03:44 - Physical Exam Constitutional: no apparent distress, appears nourished, not in pain Cardiovascular: systolic murmur (II/ at apex), bradycardia, No irregularly irregular, No edema Respiratory: no respiratory distress, no rales or rhonchi, clear to auscultation Gastrointestinal: normoactive bowel sounds, soft, non-tender abdomen, no palpable masses, No distension Genitourinary: no bladder fullness, no bladder tenderness Neurologic: AAOx3, No facial droop Psychiatric: interacting appropriately, not anxious, not encephalopathic, thought process linear ICD10 Worksheet Patient Problems: Problems Problem Status Onset Sick sinus syndrome Acute Symptomatic bradycardia Acute Complete heart block Acute
[2017-07-24] MEDS: PRAVASTATIN SODIUM 20 MG TAB PO SCH (20:14)
[2017-07-25 04:47] LABS: PLATELET COUNT 104 10^3/uL (150-400)
[2017-07-25 04:55] LABS: INR 1.75 (0.83-1.16); PROTIME(PATIENT) 20.5 SEC (12.0-15.0)
[2017-07-25] MEDS ORDERED: VANCOMYCIN PHARMACY TO DOSE MISC ONE (06:00)
[2017-07-25] MEDS ORDERED: VANCOMYCIN 1.25 GM in NS 250 ML IV ONE (06:00)
[2017-07-25] MEDS ORDERED: NS 1,000 ML IV ONE (06:00)
[2017-07-25] MEDS ORDERED: BACITRACIN IRRIGATION/NS 50,000 UNITS/1,000 ML BTL IRR ONE (06:00)
[2017-07-25] MEDS: FINASTERIDE 5 MG TAB PO SCH (08:37)
[2017-07-25] MEDS ORDERED: LIDOCAINE 1% 300 MG/30 ML SDV ONE (10:55)
[2017-07-25] MEDS ORDERED: IOPAMIDOL (ISOVUE-300) 50 ML VIAL ONE (10:55)
[2017-07-25] MEDS ORDERED: MIDAZOLAM 2 MG/2 ML VIAL ONE (10:56)
[2017-07-25] MEDS ORDERED: fentaNYL 100 MCG/2 ML INJ ONE (10:56)
[2017-07-25] MEDS ORDERED: LIDO/EPI 1% **for epidural** 30 ML SDV ONE (10:57)
[2017-07-25] MEDS ORDERED: BUPIVACAINE 0.5% 30 ML SDV ONE (10:57)
--- NOTE | 2017-07-25 11:02 | PDCARCONS ---
Cardiology Consult Reason for Consult: Electrophysiology consultation Chief Complaint: Near syncope. 2-1 av block Requesting Physician: Dr. Faisal Park, Dr. Joan Villafana History of Present Illness: 77-year-old male, past medical history of factor 5 Leiden mutation, on beta- blockers for blood pressure control, presented with near syncope. On ECG was noted to have 2-1 av block. I have been asked to discussed pacemaker implantation with the patient. History Information - Allergies/Home Medication List Allergies/Adverse Reactions: morphine [Morphine] Allergy (Intermediate, Verified 07/22/17 12:10) Loss of consciousness nitroglycerin [Nitroglycerin] Allergy (Intermediate, Verified 07/22/17 12:10) Loss of consciousness Penicillins Allergy (Unknown, Verified 07/22/17 12:10) Home Medications: Atenolol [Tenormin 25 mg (*)] 25 mg PO DAILY 07/22/17 [Last Taken 07/22/17] Herbals/Supplements -Info Only 1 ea PO DAILY 07/22/17 [Last Taken Unknown] SIMVASTATIN 10 mg PO HS 07/22/17 [Last Taken 07/21/17] Sildenafil Citrate [Viagra 50 MG (*)] 100 mg PO DAILY PRN 07/22/17 [Last Taken Unknown] Tamsulosin HCl [Tamsulosin HCl] 0.4 mg PO DAILY 07/22/17 [Last Taken 07/22/17] Warfarin Sodium [Coumadin 2MG (*)] 6 mg PO SUMOWETHSA@1600 07/22/17 [Last Taken 07/20/17] Warfarin Sodium [Coumadin 2MG (*)] 8 mg PO TUFR@1600 07/22/17 [Last Taken ] I have personally reviewed and updated: family history, medical history, social history, surgical history Past Medical History: - Social History Smoking Status: Never smoked Physical Exam Physical Exam: Temp Pulse Resp BP Pulse Ox 36.6 C 66 15 149/82 H 95 07/25/17 08:00 07/25/17 08:00 07/25/17 08:00 07/25/17 08:00 07/25/17 08:00 Constitutional: no apparent distress, appears nourished Eyes: PERRL, EOMI Ears, Nose, Mouth, Throat: moist mucous membranes, hard of hearing Cardiovascular: regular rate and rhythym, no murmur, rub, or gallop Respiratory: no respiratory distress Skin: warm Neurologic: AAOx3 Psychiatric: interacting appropriately, not anxious, not encephalopathic Lab and Imaging 07/25/17 04:15 07/25/17 04:15 WBC 3.89 10^3/uL (3.80-9.50) 07/25/17 04:15 RBC 4.79 10^6/uL (4.40-6.38) 07/25/17 04:15 Hgb 15.4 g/dL (13.7-17.5) 07/25/17 04:15 Hct 44.7 % (40.0-51.0) 07/25/17 04:15 MCV 93.3 fL (81.5-99.8) 07/25/17 04:15 MCH 32.2 pg (27.9-34.1) 07/25/17 04:15 MCHC 34.5 g/dL (32.4-36.7) 07/25/17 04:15 RDW 12.6 % (11.5-15.2) 07/25/17 04:15 Plt Count 104 10^3/uL (150-400) L 07/25/17 04:15 MPV 10.3 fL (8.7-11.7) 07/25/17 04:15 Neut % (Auto) 60.7 % (39.3-74.2) 07/25/17 04:15 Lymph % (Auto) 26.2 % (15.0-45.0) 07/25/17 04:15 [place] % (Auto) 10.0 % (4.5-13.0) 07/25/17 04:15 Eos % (Auto) 2.3 % (0.6-7.6) 07/25/17 04:15 Baso % (Auto) 0.5 % (0.3-1.7) 07/25/17 04:15 Nucleat RBC Rel Count 0.0 % (0.0-0.2) 07/25/17 04:15 Absolute Neuts (auto) 2.36 10^3/uL (1.70-6.50) 07/25/17 04:15 Absolute Lymphs (auto) 1.02 10^3/uL (1.00-3.00) 07/25/17 04:15 Absolute Monos (auto) 0.39 10^3/uL (0.30-0.80) 07/25/17 04:15 Absolute Eos (auto) 0.09 10^3/uL (0.03-0.40) 07/25/17 04:15 Absolute Basos (auto) 0.02 10^3/uL (0.02-0.10) 07/25/17 04:15 Absolute Nucleated RBC 0.00 10^3/uL (0-0.01) 07/25/17 04:15 Immature Gran % 0.3 % (0.0-1.1) 07/25/17 04:15 Immature Gran # 0.01 10^3/uL (0.00-0.10) 07/25/17 04:15 PT 20.5 SEC (12.0-15.0) H 07/25/17 04:15 INR 1.75 (0.83-1.16) H 07/25/17 04:15 APTT 32.6 SEC (23.0-38.0) 07/25/17 04:15 D-Dimer 0.30 ug/mLFEU (0.00-0.50) 07/22/17 12:45 Sodium 142 mEq/L (135-145) 07/25/17 04:15 Potassium 4.0 mEq/L (3.5-5.2) 07/25/17 04:15 Chloride 109 mEq/L (97-110) 07/25/17 04:15 Carbon Dioxide 22 mEq/l (22-31) 07/25/17 04:15 Anion Gap 11 mEq/L (8-16) 07/25/17 04:15 BUN 20 mg/dL (7-23) 07/25/17 04:15 Creatinine 1.0 mg/dL (0.7-1.3) 07/25/17 04:15 Estimated GFR > 60 07/25/17 04:15 Glucose 100 mg/dL (70-100) 07/25/17 04:15 Calcium 9.1 mg/dL (8.5-10.4) 07/25/17 04:15 Magnesium 1.9 mg/dL (1.6-2.3) 07/23/17 04:44 Total Bilirubin 1.1 mg/dL (0.1-1.4) 07/25/17 04:15 AST 22 IU/L (17-59) 07/25/17 04:15 ALT 37 IU/L (21-72) 07/25/17 04:15 Alkaline Phosphatase 57 IU/L (38-126) 07/25/17 04:15 Troponin I < 0.012 ng/mL (0.000-0.034) 07/23/17 04:44 NT-Pro-B Natriuret Pep 70 pg/mL (0-450) 07/22/17 12:45 Total Protein 5.5 g/dL (6.3-8.2) L 07/25/17 04:15 Albumin 3.1 g/dL (3.5-5.0) L 07/25/17 04:15 TSH 3.670 uIU/mL (0.465-4.680) 07/22/17 15:02 Urine Color YELLOW 07/22/17 19:40 Urine Appearance HAZY 07/22/17 19:40 Urine pH 6.0 (5.0-7.5) 07/22/17 19:40 Ur Specific [place] 1.024 (1.002-1.030) 07/22/17 19:40 Urine Protein NEGATIVE (NEGATIVE) 07/22/17 19:40 Urine Ketones TRACE (NEGATIVE) H 07/22/17 19:40 Urine Blood NEGATIVE (NEGATIVE) 07/22/17 19:40 Urine Nitrate NEGATIVE (NEGATIVE) 07/22/17 19:40 Urine Bilirubin NEGATIVE (NEGATIVE) 07/22/17 19:40 Urine Urobilinogen NEGATIVE EU (0.2-1.0) 07/22/17 19:40 Ur Leukocyte Esterase 2+ (NEGATIVE) H 07/22/17 19:40 Urine RBC 1-3 /hpf (0-3) 07/22/17 19:40 Urine WBC 10-15 /hpf (0-3) H 07/22/17 19:40 Ur Epithelial Cells TRACE /lpf (NONE-1+) 07/22/17 19:40 Urine Mucus 1+ /lpf (NONE-1+) 07/22/17 19:40 Urine Glucose NEGATIVE (NEGATIVE) 07/22/17 19:40 Patient ABO/Rh A POSITIVE 07/25/17 04:15 Antibody Screen NEGATIVE 07/25/17 04:15 EKG additional interpertation: EKG yesterday after holding atenolol showed 2-1 av block right bundle-branch block Telemetry: Intermittent episodes of 2-1 av block with heart rate in the 30s noted. Echocardiogram: Normal left ventricular ejection fraction, [id number] MR. Mild to moderate TR. A/P Assessment: 1. Hypertension 2. 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 Associated with episodes of exertional dyspnea and presyncope 3. Factor 5 Leiden mutation with prior pulmonary embolism Plan: This is class 1 indication for pacemaker. Procedure was reviewed with the patient. Risks of the procedure including , cardiac tamponade requiring emergency heart surgery, pneumothorax, deep venous thrombosis, pulmonary embolism, lead dislodgement, superior vena cava syndrome etc were discussed with patient. We also discussed potential risk of lead dislodgement and lead fracture, need for regular clinical follow-up and pacemaker generator changes in the future. He is a electrical cad technician, at his request we discussed in detail pacemaker timing cycles, pacemaker sensor ex cetera. Procedure is scheduled for this afternoon. INR today is 1.75. Warfarin will be resumed today after pacemaker placement.
--- NOTE | 2017-07-25 11:04 | PDPROPOC ---
Sedation Plan of Care Sedation Plan of Care: vital signs stable, mental status noted, patient educated of risks, benefits, alternatives, patient can tolerate sedation ASA Classification: ASA 2 Planned drugs: fentanyl, midazolam Mallampati Score: Class 1 Mallampati Reference Image: Patient passed 3-3-2 rule?: Yes
--- NOTE | 2017-07-25 13:01 | CPEKG ---
Heart Rate: 62 RR Interval: 968 P-R Interval: 236 QRSD Interval: 146 QT Interval: 444 QTC Interval: 451 P [place]: 6 QRS [place]: 40 T Wave [place]: -9 EKG Severity - ABNORMAL ECG - EKG Impression: SINUS RHYTHM EKG Impression: FIRST DEGREE AV BLOCK EKG Impression: RIGHT BUNDLE BRANCH BLOCK Electronically Signed By: Cameron Ochoa 25-Jul-2017 19:13:55
--- NOTE | 2017-07-25 14:19 | EPPROC ---
Electrophysiology Procedure Note: PROCEDURE PERFORMED: 1. Implantation of an A/V Pacemaker 2. Subclavian vein angiography 3. Fluoroscopy INDICATION: 2:1 AV block, presyncope PROCEDURE NOTE: Patient presented to the cardiac catheterization laboratory in a fasting, post absorptive state . CCL RN administered sedation. The left infraclavicular area was prepped and draped in the usual sterile fashion. Lidocaine plus bupivacaine was used for local anesthesia. Left subclavian venography was performed by injection of iodinated contrast into the left antecubital vein. This was done to assure patency of the vein and also to assess for any anatomical aberrations. Using a combination of blunt and sharp dissection and electrocautery, the dissection was carried down to the prepectoral fascia. A pocket was made in this anatomical plane. All bleeding was controlled with electrocautery. The pocket was packed with gauze soaked in antibiotic solution. Fluoroscopy was utilized during the entire procedure for venous access and placement of the leads. Using a direct stick technique the left extrathoracic axillary vein was accessed with 2 sticks using the modified Seldinger technique. Placement of the guidewires into the venous system was confirmed by low-pressure blood return and also by visualizing the guidewires advancing into the inferior vena cava. A purse string suture was applied around the guidewires. Two #7 Welsh sheaths were advanced under fluoroscopic guidance over the guidewire. An active fixation ventricular lead was advanced into the right ventricular apex and screwed in place. An active fixation atrial lead was advanced into the right atrial appendage and screwed in place. The peel away sheaths were removed. Pacing thresholds, sensing parameters and lead impedances were measured. There was no diaphragmatic stimulation at maximum output. The leads were sutured to the prepectoral fascia with 3 nonabsorbable sutures each. The pocket was again inspected for any bleeding. The leads were attached to the pacemaker securely. The pacemaker was inserted into the pocket and secured in place with a nonabsorbable suture. Fluoroscopy was performed in JAY and BELARUSIAN planes to verify right-sided placement of the leads. Also fluoroscopy of the pacemaker pocket was performed. The pacemaker pocket was closed in 3 layers with absorbable monocryl sutures and willy. Appropriate dressing was applied. The patient left the cardiac catheterization laboratory in stable condition. Serial Numbers: 1. Device: Biotronik Edora 8DRT SN [id number] 2. Atrial Lead: Biotronik Solia S53 SN [id number] 3. Ventricular Lead: Biotronik Solia S60 SN [id number] Stimulation Thresholds & Impedance Measurements: 1. Atrial Lead P 2.8 mV 0.7 V 0.4 ms 546 ohm 2. Ventricular Lead R 8.1 mV 0.8 V 0.4 ms 780 ohm [place] Pacing Parameters 1. Pacing mode: DDD-CLS 2. Lower rate: 60ppm 3. Upper tracking rate: 130 ppm 4. Upper sensor rate: 130 ppm Patient Problems: Problems Problem Status Onset Sick sinus syndrome Acute Symptomatic bradycardia Acute Complete heart block Acute
--- NOTE | 2017-07-25 14:24 | ASMTCMCOM ---
CM Note CM Note Notes: 07/25/2017 Case Management Note Reviewed pt during rounds today. Pt has pacer placed today. There are no PT or OT evals ordered. Pt has family support. Case Management d/c poc: anticipating independent with follow up as directed. Case Management available if needs change. Date Signed: 07/25/2017 02:24 PM Electronically Signed By:Clarita France RN
[2017-07-25] MEDS: TAMSULOSIN HCL 0.4 MG CAP PO SCH (15:10)
[2017-07-25] MEDS: LISINOPRIL 2.5 MG TAB PO SCH (15:10)
[2017-07-25] MEDS ORDERED: WARFARIN SODIUM 2 MG TAB PO SCH (16:00)
--- NOTE | 2017-07-25 16:20 | HOSPPROG ---
Hospitalist Progress Note Assessment/Plan: Assessment: 77-year-old male presents with acute near syncope secondary to 2:1 heart block Plan: 1. Heart block. Acute, 2:1, requiring urgent PPM -POD#0, d/w Dr. Ochoa, recommends restarting coumadin w/o hep gtt and repeat INR in AM -CXR w/o PTX -cards w/ PPM recs and f/u for patient 2. Factor 5 Leiden and history of pulmonary embolism. Patient on chronic systemic anticoagulation, coumadin 8mg this afternoon 3. Hypertension. Chronic, patient was originally receiving atenolol, SBP 140- 160s today, start lisinopril 2.5 and given IV hydralazine for SBP > 180 to prevent bleeding 4. Asymptomatic bacteriuria. Patient currently has no urinary symptoms, his urinalysis has a minimal amount of white blood cells and 2+ leukocyte esterase, would not recommend treating this as a urinary tract infection unless the patient develops urinary symptoms 5. BPH. Chronic, restart tamsulosin now Diet. Regular Prophylaxis. High risk patient, SCDs now, monitor INR Code. Full Disposition. Anticipated discharge is 07/26, depending on hospital course outlined above. Subjective: minimal chest pain, no SOB Objective: Vital Signs Temp Pulse Resp BP Pulse Ox 36.3 C 75 20 169/82 H 95 07/25/17 14:14 07/25/17 15:17 07/25/17 15:17 07/25/17 15:17 07/25/17 15:17 Laboratory Results 07/25/17 04:15 07/25/17 04:15 07/24/17 07/25/17 07/26/17 05:59 05:59 05:59 Intake Total 400 1875 Output Total 200 1300 Balance 200 575 PT 20.5 SEC (12.0-15.0) H 07/25/17 04:15 INR 1.75 (0.83-1.16) H 07/25/17 04:15 - Pending Discharge Pending Discharge Within 24 Hours: Yes Pending Discharge Date: 07/26/17 Pending Discharge Time: 11:00 - Physical Exam Constitutional: no apparent distress, appears nourished, not in pain, No uncomfortable Cardiovascular: regular rate and rhythym, no murmur, rub, or gallop, No edema Respiratory: no respiratory distress, no rales or rhonchi, clear to auscultation Gastrointestinal: normoactive bowel sounds, soft, non-tender abdomen, No guarding, No distension Skin: other (no hematoma/ecchymoses/erythema/induration around PPM) Neurologic: AAOx3, sensation intact bilaterally, No facial droop Psychiatric: interacting appropriately, not anxious, not encephalopathic, thought process linear ICD10 Worksheet Patient Problems: Problems Problem Status Onset Sick sinus syndrome Acute Symptomatic bradycardia Acute Complete heart block Acute
[2017-07-25] MEDS: PRAVASTATIN SODIUM 20 MG TAB PO SCH (20:48)
[2017-07-26 04:02] VITALS: RESP 14
[2017-07-26 04:18] LABS: PLATELET COUNT 111 10^3/uL (150-400)
[2017-07-26 04:26] LABS: INR 1.44 (0.83-1.16); PROTIME(PATIENT) 17.7 SEC (12.0-15.0)
[2017-07-26 08:27] VITALS: BP 145/75; PULSE 76; TEMP 98.4; O2SAT 91
[2017-07-26] MEDS: FINASTERIDE 5 MG TAB PO SCH (08:28)
[2017-07-26] MEDS: LISINOPRIL 2.5 MG TAB PO SCH (08:28)
[2017-07-26] MEDS: TAMSULOSIN HCL 0.4 MG CAP PO SCH (08:28)
[2017-07-26] MEDS ORDERED: LISINOPRIL 5 MG TAB PO SCH (09:03)
--- NOTE | 2017-07-26 09:14 | CPEKG ---
Heart Rate: 74 RR Interval: 811 P-R Interval: 224 QRSD Interval: 140 QT Interval: 412 QTC Interval: 457 P Ll[place]: 26 QRS [place]: 38 T Wave [place]: -8 EKG Severity - ABNORMAL ECG - EKG Impression: SINUS RHYTHM EKG Impression: FIRST DEGREE AV BLOCK EKG Impression: RIGHT BUNDLE BRANCH BLOCK Electronically Signed By: Cameron Ochoa 26-Jul-2017 10:42:25
--- NOTE | 2017-07-26 12:28 | PDCARPN ---
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 H/o 2 PEs with one in 1998 and one in 2011 and h/o htn. Has been on chronic Warfarin since then. Found to have Mobitz Type II HB on monitoring despite being off Atenolol x 48 hours. #. 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 htn: BP elevated since stopping Atenolol started on Lisinopril will need a BMP in a few weeks #. FVL mutation: Warfarin resumed no bridging with new pacer plan for INR on Monday Plan: OK to discharge from cardiology perspective 07/26/17 12:25 Subjective: Mild tenderness at pacer site. No further dizziness. Reviewed/Discussed With: hospitalist (Dr. Flores) Objective: Vital Signs (8 Hrs) Temp Pulse Resp BP Pulse Ox 07/26/17 08:26 98.4 F 76 14 145/75 H 91 L Intake/Output (24 Hrs) 07/25/17 07/26/17 07/27/17 05:59 05:59 05:59 Intake Total 1875 350 Output Total 1300 Balance 575 350 Intake: Oral (ml) 1650 350 IV Infused (ml) 225 1/2 Ns 1,000 ml @ 75 mls/ 225 hr IV CONT SUPRIYA Rx#: [id number] Output: Urine (ml) 1300 Toilet 1300 Other: Intake Quantity npo Sufficient Number of Voids Toilet 1 2 Number of Stools Toilet 1 1 Result Diagrams: 07/26/17 03:58 07/26/17 03:58 EKG: NSR Telemetry: reviewed SR with no further 2nd degree heart block - Physical Exam Constitutional: healthy appearing, no apparent distress Eyes: PERRL, anicteric sclera Cardiovascular: regular rate and rhythm, no murmurs Respiratory: clear to auscultate bilat ICD10 Worksheet Patient Problems: Problems Problem Status Onset Complete heart block Acute Sick sinus syndrome Acute Symptomatic bradycardia Acute
[2017-07-26] MEDS ORDERED: WARFARIN SODIUM 2 MG TAB PO SCH (16:00)
--- NOTE | 2017-07-26 20:13 | PDDCSUM ---
Discharge Summary Discharge Summary: DISCHARGE SUMMARY FOLLOW-UP ITEMS: Outpatient pacemaker check Outpatient INR check on 07/31 DATE OF ADMISSION: 07/22/2017 DATE OF DISCHARGE: 07/26/2017 DISCHARGE DIAGNOSES: 1. 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 Chronic factor 5 Leiden disorder with history of recurrent pulmonary embolism 3. Chronic hypertension 4. Asymptomatic bacteriuria 5. Chronic BPH CONSULTATIONS: Cardiology, electrophysiology PROCEDURES / IMAGING: Permanent pacemaker placement on 07/25/2017 CHIEF COMPLAINT: Acute near syncope SUBJECTIVE: Patient is feeling well at time discharge, he is ambulating well without any lightheadedness PHYSICAL EXAM ON DISCHARGE: Systolic blood pressure is 1 40-160, heart rhythm is regular, lungs are clear to auscultation bilaterally LABS ON DISCHARGE: Creatinine 0.9, INR 1.44 HOSPITAL COURSE BY PROBLEM: 1. Acute 2:1 AV sherita heart block. This was the cause of patient's presyncopal symptoms and was in the setting of atenolol use with underlying cardiac conduction abnormality. The patient was evaluated by Cardiology and then electrophysiology, and it was determined that he should have a permanent pacemaker placed after allowing his INR to down trend to place safely. The patient was monitored on telemetry and consistently demonstrated 2-1 heart block despite having his atenolol stopped at time of presentation. There was consequently an absolute indication for the pacemaker and was placed on 2017. Patient received routine pacemaker check and demonstrated no evidence of pneumothorax on chest x-ray. He will follow up at [facility] and has been given activity restriction education. 2. Chronic factor 5 Leiden disorder with history of recurrent pulmonary embolism. The patient has had recurrent pulmonary emboli in the setting of factor 5 Leiden disorder. And his systemic anticoagulation was held in preparation for his pacemaker placement. After his procedure, his INR was subtherapeutic, and Dr. Ochoa recommended giving some additional doses of Coumadin to get him back into therapeutic range. He did not recommend heparin drip given his high risk of bleeding. The patient will receive additional doses of Coumadin on 07/25, 07/26, 07/27, with follow-up INR on 07/31. 3. Chronic hypertension. The patient was originally receiving his atenolol for hypertension, and now that is been discontinued, we have initiated him on lisinopril 5 mg daily. He has been prescribed a 30 day supply to be filled locally, and his primary care provider office or [facility] will need to fax a script for this medication to [facility]. 4. Asymptomatic bacteria. Patient had no urinary symptoms and did not have any urinary tract infection. 5. Chronic BPH. His tamsulosin was initially held secondary to his near-syncope , then it was re-initiated after his pacemaker. DISCHARGE MEDICATIONS: Please see official discharge medication reconciliation sheet in chart , continue home medications with discontinuation of atenolol, initiation of lisinopril 5 mg daily, increase in Coumadin to 8 mg daily for 3 days, then resume regular home dosing. DISCHARGE INSTRUCTIONS: Repeat INR as discussed above. TIME SPENT: Greater than 30 minutes were spent on direct patient care, as well as discharge planning and preparation.
== END 2017-07-26 11:23 | disposition home or self-care (01) | DRG 243 ==
LOC: OBSVTOIN 14:33 → F2W 15:13
PROVIDERS: ADMIT Internal Medicine; ATTEND Internal Medicine
DX: I44.1 Atrioventricular block, second degree (principal); D68.51 Activated protein C resistance; I10 Essential (primary) hypertension; N40.1 Benign prostatic hyperplasia with lower urinary tract symptoms; R82.71 Bacteriuria; Z86.711 Personal history of pulmonary embolism; E78.5 Hyperlipidemia, unspecified; Z79.01 Long term (current) use of anticoagulants
CPT/HCPCS: C1785; C1898; J2250; J3010; J3370; Q9967

== ENCOUNTER 2018-06-12 03:38 | Emergency (ER) | payer OTHER ==
--- NOTE | 2018-06-12 03:58 | EDPHY ---
H & P Stated Complaint: can only urinate small amount since midnight Time Seen by Provider: 06/12/18 03:48 HPI/ROS: Chief Complaint: Difficulty urinating HPI: 78-year-old male with a history of benign prostate disease and a bladder mass which is being followed by Dr. Donnelly. Patient woke at midnight tonight with the urge to void. He was only able to void a very small amount. Since that time he has had frequent episodes with urgency of voiding. Last time he did have some blood in his urine. He does have a history of factor 5 Leiden and takes Coumadin. INR was last checked a week and half ago. He has been suffering from URI symptoms for the last week or so. Some subjective fevers at home. No flank pain. No abdominal pain. No nausea or vomiting. ROS: 10 systems were reviewed and were negative except those elements noted in the HPI. PMH: Factor 5 Leiden, PE, BPH Social History: No smoking, no alcohol, no recreational drug use Family History: non-contributory Physical Exam: Gen: Awake, Alert, No Distress HEENT: Nose: no rhinorrhea Eyes: PERRLA, EOMI Mouth: Moist mucosa Neck: Supple, no JVD Chest: nontender, lungs clear to auscultation Heart: S1, S2 normal, no murmur Abd: Soft, non-tender, no guarding Back: no CVA tenderness, no midline tenderness Ext: no edema, non-tender Skin: no rash Neuro: CN II-XII intact, Sensation grossly intact, Strength 5/5 in bilateral upper and lower extremities - Personal History Current Tetanus/Diphtheria Vaccine: Yes Current Tetanus Diphtheria and Acellular Pertussis (TDAP): Yes Tetanus Vaccine Date: 2011 - Medical/Surgical History Hx Asthma: No Hx Chronic Respiratory Disease: No Hx Diabetes: No Hx Cardiac Disease: Yes Hx Renal Disease: No Hx Cirrhosis: No Hx Alcoholism: No Hx HIV/AIDS: No Hx Splenectomy or Spleen Trauma: No Other PMH: HTN, cataract/PE, pericarditis, 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, Soco- Noel syndrome, Plantar fascitis, hernia, vasectomy, prostate biopsy, removed gallbladder, pacemaker, essential tremor, Factor V, high cholesterol, hearing loss - Social History Smoking Status: Never smoked Constitutional: Initial Vital Signs Temperature (C) 37.2 C 06/12/18 03:39 Heart Rate 96 06/12/18 03:39 Respiratory Rate 16 06/12/18 03:39 Blood Pressure 170/78 H 06/12/18 03:39 O2 Sat (%) 96 06/12/18 03:39 O2 Delivery Mode Room Air Allergies/Adverse Reactions: morphine [Morphine] Allergy (Intermediate, Verified 06/12/18 03:45) Loss of consciousness nitroglycerin [Nitroglycerin] Allergy (Intermediate, Verified 06/12/18 03:45) Loss of consciousness Penicillins Allergy (Unknown, Verified 06/12/18 03:45) Home Medications: Medication Instructions Recorded SIMVASTATIN 10 mg PO HS 07/22/17 Sildenafil Citrate [Viagra 50 MG 100 mg PO DAILY PRN 07/22/17 (*)] Tamsulosin HCl 0.4 mg PO DAILY 07/22/17 Warfarin Sodium [Coumadin 2MG (*)] 6 mg PO SUMOWETHSA@1600 07/22/17 Atenolol 06/12/18 Finasteride 06/12/18 Nitrofurantoin Monohyd/M-Cryst 100 mg PO BID #14 capsule 06/12/18 [Macrobid 100 mg Capsule] Phenazopyridine HCl [Pyridium] 200 mg PO TID #6 tab 06/12/18 Medical Decision Making ED Course/Re-evaluation: 78-year-old male on Coumadin with hemorrhagic cystitis. Urinalysis consistent UT I. No urine retention at this time on bladder scan. Will start him on nitrofurantoin as this should have minimal interaction with his Coumadin. Will also start him on peridium which could also have minimal interaction with his Coumadin. Follow up with his urologist. - Data Points Laboratory Results: 06/12/18 04:00 Urine Color YELLOW Urine Appearance TURBID Urine pH 5.0 (5.0-7.5) Ur Specific [place] 1.023 (1.002-1.030) Urine Protein 2+ H (NEGATIVE) Urine Ketones TRACE H (NEGATIVE) Urine Blood 3+ H (NEGATIVE) Urine Nitrate POSITIVE H (NEGATIVE) Urine Bilirubin NEGATIVE (NEGATIVE) Urine Urobilinogen NEGATIVE EU EU (0.2-1.0) Ur Leukocyte Esterase 2+ H (NEGATIVE) Urine RBC 50-182 /hpf H /hpf (0-3) Urine WBC 50-182 /hpf H /hpf (0-3) Ur Epithelial Cells NONE SEEN /lpf /lpf (NONE-1+) Urine Bacteria 1+ /hpf H /hpf (NONE SEEN) Urine Yeast PRESENT /hpf /hpf (NONE SEEN) Urine Glucose NEGATIVE (NEGATIVE) Departure - Departure Disposition: Home, Routine, Self-Care Clinical Impression: Urinary tract infection Condition: Good Instructions: Urinary Tract Infection in Men (ED) Additional Instructions: Please take her full course of antibiotics. Follow up with your urologist and primary care physician in 2-3 days for further evaluation. Return to the emergency department for worsening difficulty urinating, lightheadedness, fevers, vomiting, or any other concerns. Referrals: Crystal Lindsay MD [Primary Care Provider] - As per Instructions Prescriptions: Nitrofurantoin Monohyd/M-Cryst [Macrobid 100 mg Capsule] 100 mg PO BID #14 capsule Phenazopyridine HCl [Pyridium] 200 mg PO TID #6 tab
[2018-06-12] MEDS ORDERED: PHENAZOPYRIDINE HCL 200 MG TAB PO ONE (04:33)
[2018-06-12] MEDS ORDERED: NITROFURANTOIN 100MG PREPACK#2 BTL TAKEHOME ONE (04:33)
[2018-06-12 05:05] VITALS: BP 129/94
== END 2018-06-12 05:02 | disposition home or self-care (01) ==
DX: N39.0 Urinary tract infection, site not specified (principal); I10 Essential (primary) hypertension; D68.2 Hereditary deficiency of other clotting factors; Z79.01 Long term (current) use of anticoagulants